=== PATIENT | female | born 1995 | race Caucasian/White ===

== ENCOUNTER 2017-08-05 10:53 | Emergency (ER) | payer SELFPAY ==
[2017-08-05 11:00] VITALS: BP 122/74; BMI 33.5
--- NOTE | 2017-08-05 11:50 | DR.GENAD ---
HPI - PCP Primary Care Physician: MYLES SR - Complaint/Symptoms Chief Complaint Doctors Comments: Patient presents with complaint of fast heart rate. She has a three year history of intermittently tachycardia w/o workup. She denies any history of excessive stimulent used (drinks), coffee infrequently , negative history of thryroid disease, neg anxiety. She wroks as a [employer]. Chief Complaint:: PATIENT STATED THAT SHE WAS HAVING PALPATATIONS WAS WORKING AND FELT LIKE HER HEART RATE WAS ELEVATED. NOW SHE IS HAVING FEET AND HAND SWELLING. DIZZY AND HANDS TINGLING. SHE HAS BEEN HAVING PROBLEMS FOR A WHILE NOW. - Source History Provided: Patient - Mode of Arrival Mode of Arrival: Ambulatory - Timing Onset of Chief Complaint: 08/05/17 PMH - PMH Past Medical History: No Past Surgical History: No - Family History History of Family Medical Conditions: No - Social History Does patient currently use any type of tobacco product: No Have you used tobacco products in the last 12 months: No Type of Tobacco Use: None Does any household member use tobacco: No Alcohol Use: None Do you use any recreational Drugs:: No Lives With: Family Lives Where: Home - infectious screening In the last 2 months have you had wt loss of >10#?: NO Have you had fever, night sweats or hemotysis?: No Have you traveled outside the country in the last 6 months?: No Isolation: Standard ROS - Review of Systems Eyes: No Symptoms Reported ENTM: No Symptoms Reported Respiratoy: No Symptoms Reported Cardiovascular: Palpitations Gastrointestinal/Abdominal: No Symptoms Reported Genitourinary: No Symptoms Reported Neurological: No Symptoms Reported Musculoskeletal: No Symptoms Reported Integumentary: No Symptoms Reported Hematologic/Lymphatic: No Symptoms Reported Endocrine: No Symptoms Reported Psychiatric: No Symptoms Reported All Other Systems: Reviewed and Negative PE - Vital Signs Vitals: Pulse Rate 91 Respiratory Rate 20 Blood Pressure 122/74 O2 Sat by Pulse Oximetry 98 - General Limitations: No Limitations General Appearance: Alert, In No Apparent Distress - Head Head Exam: Normal Inspection, Atraumatic - Eyes Eye exam: Normal Appearance, PERRL, EOMI - ENT ENT Exam: Normal Exam, Normal Oropharynx External Ear Exam: Normal External Inspection TM/Canal Exam: Bilateral Normal Nose Exam: Normal Nose Exam Mouth Exam: Normal Inspection Throat Exam: Normal Inspection - Neck Neck Exam: Normal Inspection - Chest Chest Inspection: Normal Inspection - Respiratory Respiratory Exam: Normal Lung Sounds Bilat Respiratory Exam: Bilateral Clear to Auscultation - Cardiovascular Cardiovascular Exam: Regular Rate, Normal Rhythm - Abdominal Exam Abdominal Exam: Normal Inspection Abdominal Tenderness: negative: RUQ, RLQ, LUQ, LLQ, Epigastrium, Suprapubic, Diffuse, Mild, Moderate, Severe, Other - Extremities Extremities Exam: Normal Inspection, Full ROM - Back Back Exam: Normal Inspection, Full ROM - Neurologic Neurological Exam: Alert, Oriented X3, CN II-XII Intact - Psychiatric Psychiatric Exam: Normal Affect, Normal Mood - Skin Skin Exam: Warm, Dry, Intact ROR - Labs Reviewed Result Diagrams: 08/05/17 12:03 08/05/17 12:03 Laboratory: WBC 6.3 X10^3/uL (3.6-10.0) 08/05/17 12:03 RBC 4.25 X10^6/uL (3.5-5.4) 08/05/17 12:03 Hgb 12.6 g/dL (12.0-16.0) 08/05/17 12:03 Hct 37.4 % (36.0-47.0) 08/05/17 12:03 MCV 88.0 fL (80.0-100.0) 08/05/17 12:03 MCH 29.7 pg (27.0-34.0) 08/05/17 12:03 MCHC 33.8 g/dL (33.0-35.0) 08/05/17 12:03 RDW 13.6 % (11.6-16.5) 08/05/17 12:03 Plt Count 333 X10^3/uL (150.0-450.0) 08/05/17 12:03 MPV 8.1 fL (7.4-11.0) 08/05/17 12:03 Neut % 51.6 % (42.0-75.0) 08/05/17 12:03 Lymph % 38.4 % (21.0-51.0) 08/05/17 12:03 [place] % 9.1 % (0.0-13.0) 08/05/17 12:03 Eos % 0.3 % (0.9-2.9) L 08/05/17 12:03 Baso % 0.6 % (0.2-1.0) 08/05/17 12:03 Neut # 3.3 x10^3/uL (2.2-4.8) 08/05/17 12:03 Lymph # 2.4 X10^3/uL (1.3-2.9) 08/05/17 12:03 [place] # 0.6 x10^3/uL (0.3-0.8) 08/05/17 12:03 Eos # 0.0 x10^3/uL (0.0-0.2) 08/05/17 12:03 Baso # 0.0 X10^3/uL (0.0-0.1) 08/05/17 12:03 Absolute Nucleated RBC 0.1 /100WBC 08/05/17 12:03 Sodium 140 mmol/L (136-145) 08/05/17 12:03 Corrected Sodium TNP 08/05/17 12:03 Potassium 3.9 mmol/L (3.5-5.1) 08/05/17 12:03 Chloride 107 mmol/L (98-107) 08/05/17 12:03 Carbon Dioxide 24.7 mmol/L (21-32) 08/05/17 12:03 BUN 10 mg/dL (7-18) 08/05/17 12:03 Creatinine 0.77 mg/dL (0.55-1.02) 08/05/17 12:03 Est GFR (MDRD) Af Amer > 60 (>60) 08/05/17 12:03 Est GFR (MDRD) Non-Af > 60 (>60) 08/05/17 12:03 Glucose 84 mg/dL (65-99) 08/05/17 12:03 Calcium 8.6 mg/dL (8.5-10.1) 08/05/17 12:03 Corrected Calcium 9.3 mg/dL (8.5-10.1) 08/05/17 12:03 Total Bilirubin 0.10 mg/dL (0.2-1.0) L 08/05/17 12:03 AST 17 Units/L (15-37) 08/05/17 12:03 ALT 21 Units/L (12-78) 08/05/17 12:03 Alkaline Phosphatase 93 Units/L (46-116) 08/05/17 12:03 Total Protein 7.4 g/dL (6.4-8.2) 08/05/17 12:03 Albumin 3.1 g/dL (3.4-5.0) L 08/05/17 12:03 Globulin 4.3 g/dL (2.5-4.5) 08/05/17 12:03 Albumin/Globulin Ratio 0.7 Ratio (1.1-2.1) L 08/05/17 12:03 TSH 3rd Generation 1.186 uIU/mL (0.358-3.74) 08/05/17 12:03 HCG, Qual Negative <10 mIU/mL 08/05/17 12:03 Specimen Type Random urine 08/05/17 12:29 Urine Color Yellow (YELLOW) 08/05/17 12:29 Urine Appearance Clear (CLEAR) 08/05/17 12:29 Urine pH 5.0 (5.0 - 8.0) 08/05/17 12:29 Ur Specific [place] 1.020 (1.000-1.030) 08/05/17 12:29 Urine Protein Negative (NEGATIVE) 08/05/17 12:29 Urine Glucose (UA) Negative (NEGATIVE) 08/05/17 12:29 Urine Ketones Negative (NEGATIVE) 08/05/17 12:29 Urine Occult Blood 1+ (NEGATIVE) 08/05/17 12:29 Urine Nitrite Negative (NEGATIVE) 08/05/17 12:29 Urine Bilirubin Negative (NEGATIVE) 08/05/17 12:29 Urine Urobilinogen Normal (NORMAL) 08/05/17 12:29 Ur Leukocyte Esterase 1+ (NEGATIVE) 08/05/17 12:29 Urine RBC Rare /HPF (NEGATIVE) 08/05/17 12:29 Urine WBC Rare /HPF (NEGATIVE) 08/05/17 12:29 Ur Squamous Epith Cells Many /HPF (NEGATIVE) 08/05/17 12:29 Amorphous Sediment 1+ /HPF (NEGATIVE) 08/05/17 12:29 Urine Bacteria Trace /HPF (NEGATIVE) 08/05/17 12:29 Ur Culture Indicated? No/not indicated 08/05/17 12:29 - Diagnosis Discharge Problem: History of tachycardia - Discharge Plan Condition: Stable - Follow ups/Referrals Follow ups/Referrals: MYLES SR [Primary Care Provider] - 3 days - Instructions
[2017-08-05 12:16] LABS: BASOPHILS % (AUTO) 0.6 % (0.2-1.0); EOSINOPHILS % (AUTO) 0.3 % (0.9-2.9); HEMATOCRIT 37.4 % (36.0-47.0); HEMOGLOBIN 12.6 g/dL (12.0-16.0); LYMPHOCYTES # (AUTO) 2.4 X10^3/uL (1.3-2.9); LYMPHOCYTES % (AUTO) 38.4 % (21.0-51.0); MEAN CORPUSCULAR HEMOGLOBIN 29.7 pg (27.0-34.0); MEAN CORPUSCULAR HGB CONC 33.8 g/dL (33.0-35.0); MEAN PLATELET VOLUME 8.1 fL (7.4-11.0); MONOCYTES # (AUTO) 0.6 x10^3/uL (0.3-0.8); MONOCYTES % (AUTO) 9.1 % (0.0-13.0); NEUTROPHILS # (AUTO) 3.3 x10^3/uL (2.2-4.8); NEUTROPHILS % (AUTO) 51.6 % (42.0-75.0); PLATELET COUNT 333 X10^3/uL (150.0-450.0); RED BLOOD COUNT 4.25 X10^6/uL (3.5-5.4); RED CELL DISTRIBUTION WIDTH 13.6 % (11.6-16.5); WHITE BLOOD COUNT 6.3 X10^3/uL (3.6-10.0)
[2017-08-05 12:24] LABS: SERUM PREGNANCY TEST, QUAL NEGATIVE <10 mIU/mL
[2017-08-05 12:34] LABS: ALANINE AMINOTRANSFERASE 21 Units/L (12-78); ALBUMIN 3.1 g/dL (3.4-5.0); ALKALINE PHOSPHATASE 93 Units/L (46-116); ASPARTATE AMINO TRANSFERASE 17 Units/L (15-37); BLOOD UREA NITROGEN 10 mg/dL (7-18); CALCIUM 8.6 mg/dL (8.5-10.1); CARBON DIOXIDE 24.7 mmol/L (21-32); CHLORIDE 107 mmol/L (98-107); COR CA(FOR HYPOALB) 9.3 mg/dL (8.5-10.1); CREATININE 0.77 mg/dL (0.55-1.02); SODIUM 140 mmol/L (136-145); TOTAL PROTEIN 7.4 g/dL (6.4-8.2); TSH (3RD GENERATION) 1.186 uIU/mL (0.358-3.74); eGFR BLACK RACES > 60 (>60); eGFR NON BLACK RACES > 60 (>60)
[2017-08-05 12:37] LABS: BILIRUBIN,URINE NEGATIVE (NEGATIVE); BLOOD/HEMOGLOBIN,URINE 1+ (NEGATIVE); GLUCOSE, URINE NEGATIVE (NEGATIVE); KETONES,URINE NEGATIVE (NEGATIVE); LEUKOCYTE ESTERASE ,URINE 1+ (NEGATIVE); NITRITES,URINE NEGATIVE (NEGATIVE); PROTEIN,URINE NEGATIVE (NEGATIVE); UROBILINOGEN,URINE NORMAL (NORMAL)
[2017-08-05 12:46] LABS: AMORPHOUS SEDIMENT,UR 1+ /HPF (NEGATIVE); APPEARANCE,URINE CLEAR (CLEAR); BACTERIA,URINE TRACE /HPF (NEGATIVE); COLOR,URINE YELLOW (YELLOW); RBC,URINE RARE /HPF (NEGATIVE); SQUAMOUS EPITHELIAL CELL,UR MANY /HPF (NEGATIVE)
--- NOTE | 2017-08-05 12:59 | RAD ---
HISTORY: Chest pain. Shortness of breath. Palpitations. Study: AP portable chest Comparison: None Findings: The heart, lungs, mediastinum and bony structures are normal for the patient's age. IMPRESSION: 1. No radiographic evidence of acute cardiopulmonary disease. Reported By:
== END 2017-08-05 13:03 | disposition home or self-care (01) ==
LOC: ER 11:09
DX: M79.89 Other specified soft tissue disorders (principal); R42 Dizziness and giddiness; R20.2 Paresthesia of skin; Z86.79 Personal history of other diseases of the circulatory system
CPT/HCPCS: 36415; 71010; 80053; 81001; 84443; 84703; 85025; 93005; 93010; 99283

== ENCOUNTER 2020-04-21 06:17 | Inpatient (IN) ==
[2020-04-21] MEDS ORDERED: D5 1/2 NS 1000 ML 1,000 ML IV ONE (06:28)
[2020-04-21] MEDS ORDERED: PITOCIN ONE (06:28)
[2020-04-21] MEDS ORDERED: BETADINE SOLN ONE (06:28)
[2020-04-21] MEDS ORDERED: D5LR 1L W PITOCIN 10 UNITS/L 10 UNITS/1,000 ML BAG IV ONE (06:29)
[2020-04-21] MEDS ORDERED: D5 1/2 NS 1L W PITOCIN 20 UNITS/L 20 UNITS/1,000 ML BAG IV ONE (06:31)
[2020-04-21] MEDS ORDERED: NS 100 ML IV 100 ML IV ONE ×3 (06:32→12:35)
[2020-04-21] MEDS ORDERED: AMPICILLIN VIAL 2 GRAM ONE (06:32)
--- NOTE | 2020-04-21 07:02 | DR.OB ---
OB Quick Note - Assessment/Plan Assessment/Plan: L&D 04/21/20 at 6:55am S-No complaint. O-Afebrile,VSS UTY=479 with good LTV, +accel, no decel. CTX=none CVX=2-3cm/80%/-1/VTX AROM with clear fluid. IUPC and FSE placed. A-IUP at 38 6/7 weeks for induction +GBS Supraventricular tachcardia Anxiety P-Begin pitocin induction IV ABX in labor for +GBS Anticipate
[2020-04-21] MEDS ORDERED: PITOCIN IVP ONE (07:25)
[2020-04-21] MEDS ORDERED: PHENERGAN INJ 25 MG IM PRN ×2 (07:25→13:47)
[2020-04-21] MEDS ORDERED: REGLAN INJ 10 MG VIAL IVP PRN (07:25)
[2020-04-21] MEDS ORDERED: NUBAIN INJ 200 MG VIAL MULTIDOSE IVP PRN (07:25)
[2020-04-21] MEDS ORDERED: MORPHINE SULFATE INJ 2 MG INJ IVP PRN (07:25)
[2020-04-21] MEDS ORDERED: D5 1/2 NS 1000 ML 1,000 ML IV SCH (07:25)
[2020-04-21] MEDS ORDERED: AMPICILLIN VIAL 2 GRAM 2 G in NS 100 ML IV + SPIKE MINIBAG* 100 ML IV SCH (07:25)
[2020-04-21] MEDS ORDERED: D5LR 1L W PITOCIN 10 UNITS/L 10 UNITS/1,000 ML BAG IV PRN (07:25)
[2020-04-21] MEDS ORDERED: STADOL INJ IVP PRN (07:26)
[2020-04-21] MEDS: VSL#3 PO SCH ×2 (07:40→12:46)
[2020-04-21 07:55] LABS: BASOPHILS # (AUTO) 0.1 X10^3/uL (0.0-0.1); BASOPHILS % (AUTO) 0.7 % (0.2-1.0); EOSINOPHILS % (AUTO) 0.2 % (0.9-2.9); HEMATOCRIT 32.5 % (36.0-47.0); HEMOGLOBIN 10.9 g/dL (12.0-16.0); LYMPHOCYTES # (AUTO) 2.1 X10^3/uL (1.3-2.9); LYMPHOCYTES % (AUTO) 23.1 % (21.0-51.0); MEAN CORPUSCULAR HEMOGLOBIN 29.5 pg (27.0-34.0); MEAN CORPUSCULAR HGB CONC 33.5 g/dL (33.0-35.0); MEAN PLATELET VOLUME 8.9 fL (7.4-11.0); MONOCYTES # (AUTO) 0.8 x10^3/uL (0.3-0.8); MONOCYTES % (AUTO) 8.3 % (0.0-13.0); NEUTROPHILS # (AUTO) 6.2 x10^3/uL (2.2-4.8); NEUTROPHILS % (AUTO) 67.7 % (42.0-75.0); PLATELET COUNT 253 X10^3/uL (150.0-450.0); RED BLOOD COUNT 3.69 X10^6/uL (3.5-5.4); RED CELL DISTRIBUTION WIDTH 14.9 % (11.6-16.5); WHITE BLOOD COUNT 9.2 X10^3/uL (3.6-10.0)
[2020-04-21 08:09] LABS: ALANINE AMINOTRANSFERASE 12 Units/L (12-78); ALBUMIN 2.2 g/dL (3.4-5.0); ALKALINE PHOSPHATASE 185 Units/L (46-116); ASPARTATE AMINO TRANSFERASE 16 Units/L (15-37); BLOOD UREA NITROGEN 7 mg/dL (7-18); CALCIUM 8.1 mg/dL (8.5-10.1); CARBON DIOXIDE 18.6 mmol/L (21-32); CHLORIDE 104 mmol/L (98-107); COR CA(FOR HYPOALB) 9.5 mg/dL (8.5-10.1); CREATININE 0.53 mg/dL (0.55-1.02); SODIUM 135 mmol/L (136-145); TOTAL PROTEIN 6.4 g/dL (6.4-8.2); eGFR NON BLACK RACES > 60 (>60)
[2020-04-21] MEDS ORDERED: AMPICILLIN VIAL 1 GRAM ONE ×2 (08:18→12:35)
[2020-04-21] MEDS: AMPICILLIN VIAL 1 GRAM 1 G in NS 50 ML IV + SPIKE MINIBAG* 50 ML IV SCH ×3 (08:20→14:03)
[2020-04-21] MEDS ORDERED: LR 1000 ML IV 1,000 ML IV ONE (08:28)
[2020-04-21] MEDS ORDERED: FENTANYL INJ 100 mcg ONE (08:28)
[2020-04-21] MEDS ORDERED: FENTANYL 2 mcg/mL-ROPIV 0.1%-NS EPIDURAL 200 ML EPI ONE (08:29)
[2020-04-21] MEDS ORDERED: STADOL INJ ONE (09:33)
[2020-04-21] MEDS ORDERED: XYLOCAINE 1 % (PLAIN) ONE (10:12)
[2020-04-21 11:13] LABS: BILIRUBIN,URINE NEGATIVE (NEGATIVE); BLOOD/HEMOGLOBIN,URINE NEGATIVE (NEGATIVE); GLUCOSE, URINE NEGATIVE (NEGATIVE); KETONES,URINE NEGATIVE (NEGATIVE); LEUKOCYTE ESTERASE ,URINE NEGATIVE (NEGATIVE); NITRITES,URINE NEGATIVE (NEGATIVE); PROTEIN,URINE 1+ (NEGATIVE); UROBILINOGEN,URINE NORMAL (NORMAL)
[2020-04-21 11:22] LABS: APPEARANCE,URINE CLEAR (CLEAR); COLOR,URINE YELLOW (YELLOW); RBC,URINE NONE SEEN /HPF (0-3); SQUAMOUS EPITHELIAL CELL,UR RARE /HPF (NEGATIVE)
[2020-04-21 11:23] LABS: BACTERIA,URINE NEGATIVE /HPF (NEGATIVE)
--- NOTE | 2020-04-21 12:00 | DR.OB ---
OB Quick Note - Assessment/Plan Assessment/Plan: L&D 04/21/20 at 11:55am Pitocin=8mu/min. Ampicillin S-No complaint. s/p epidural. O-Afebrile,VSS MCT=354 with good LTV, +accel, no decel. CTX=q 1 1/2 to 3 min., about 45-55mmHg CVX=6cm/90%/0 A-IUP at 38 6/7 weeks for induction +GBS Supraventricular tachycardia anemia P-Cont. Pitocin induction/IV ABX in labor Anticipate
[2020-04-21] MEDS ORDERED: MOTRIN TAB 800 MG PO PRN (13:47)
[2020-04-21] MEDS ORDERED: DERMOPLAST PAIN RELIEF SPRAY TOP PRN (15:14)
[2020-04-21] MEDS ORDERED: ADACEL or BOOSTRIX TDaP VACCINE IM ONE (15:14)
[2020-04-21] MEDS ORDERED: AMBIEN PO PRN (15:14)
[2020-04-21] MEDS ORDERED: MILK OF MAGNESIA PO PRN (15:14)
[2020-04-21] MEDS: D5 1/2 NS 1000 ML 1,000 ML with PITOCIN 20 UNITS IV SCH ×4 (16:33→21:30)
--- NOTE | 2020-04-21 16:53 | DR.OB ---
OB Quick Note - Assessment/Plan Assessment/Plan: Delivery Note BRICK TESTER 04/21/20 at 1:31pm Patient complete and pushing. Head delivered over intact perineum. No nuchal cord. Nose and mouth bulb suctioned. Body delivered over intact perineum (compound presentation, left hand at head). Cord clamped x 2 and cut. handed to attendant. Cord sent for gases. Placenta delivered spontaneously / intact / 3 vessel cord. No CVX / vaginal / perineal tears noted. Viable female infant, VTX/OA, wt=6'9" and 8/9, stable to NBN. Mother stable to RR. UGU=[id number].
[2020-04-22 05:15] LABS: HEMATOCRIT 26.2 % (36.0-47.0)
[2020-04-22 05:38] LABS: HEMOGLOBIN 8.7 g/dL (12.0-16.0)
[2020-04-22] MEDS: D5 1/2 NS 1000 ML 1,000 ML with PITOCIN 20 UNITS IV SCH ×2 (05:43)
[2020-04-22] MEDS ORDERED: DEPO-PROVERA CONTRACEPTIVE INJ IM ONE (07:35)
[2020-04-22] MEDS ORDERED: CELEXA PO SCH (09:00)
[2020-04-22] MEDS ORDERED: TOPROL XL PO SCH (09:00)
[2020-04-22] MEDS ORDERED: PRENATAL PLUS PO SCH (09:00)
[2020-04-22] MEDS: VSL#3 PO SCH (09:47)
[2020-04-22 15:52] VITALS: BP 129/74
[2020-04-22] MEDS ORDERED: FERROUS GLUCONATE PO SCH (17:00)
== END 2020-04-22 16:05 | disposition home or self-care (01) | DRG 806 ==
LOC: LD 06:17 → MED/SURG 15:36
PROVIDERS: ADMIT Specialist; ATTEND Specialist